=== PATIENT | male | born 1980 | race African-American/Black ===

== ENCOUNTER 2025-05-17 23:03 | Emergency (ER) | payer BC, MEDICAID, OTHER ==
[~2025-05-17] VITALS: Ht 193 cm; Wt 80.6 kg
--- NOTE | 2025-05-17 23:53 | ED.PDOC ---
Back pain HPI HPI Comments PT PRESENTED TO ED FOR BACK SPASMS X2-3 DAYS. PT STATED HE EXPERIENCED PREVIOUS EPISODES BUT NOT INTENSE TODAY. PT DENIED ANY URINARY S/S. Time Seen by MD: 23:05 Reviewed Notes: Nurses Notes, Medications, Allergies Allergies: Coded Allergies: No Known Drug Allergy (Verified Allergy, Unknown, 05/18/25) Home Meds Active Scripts Ibuprofen (Ibuprofen) 800 Mg Tab, 800 MG PO Q8HP PRN for 6 Days, #18 TAB Prov:ISSAC MULLEN [employer] 05/18/25 Tizanidine Hydrochloride (Tizanidine Hcl) 4 Mg Tab, 4 MG PO BID PRN for 6 Days, #12 TAB Prov:PAZISSAC [employer] 05/18/25 Information Source: Patient Constitutional: denies: chills, diaphoresis, fatigue, fever, malaise, sweats, weakness, others EENTM: denies: blurred vision, double vision, ear bleeding, ear discharge, ear drainage, ear pain, ear ringing, eye pain, eye redness, hearing loss, mouth pain, mouth swelling, nasal discharge, nose bleeding, nose congestion, nose pain, photophobia, tearing, throat pain, throat swelling, voice changes, others Respiratory: denies: cough, hemoptysis, orthopnea, SOB at rest, shortness of breath, SOB with excertion, stridor, wheezing, others Cardiovascular: denies: chest pain, dizzy spells, diaphoresis, Dyspnea on exertion, edema, irregular heart beat, left arm pain, lightheadedness, palpitations, PND, syncope, others Genitourinary: reports: flank pain; denies: burning, dysuria, frequency, hematuria, incontinence, penile discharge, penile sore, pain, testicle pain, testicle swelling, urgency, others Neurological: denies: dizziness, fainting, headache, left sided numbness, left sided weakness, numbness, paresthesia, pre-existing deficit, right sided numbness, right sided weakness, seizure, speech problems, tingling, tremors, weakness, others Musculoskeletal: reports: back pain; denies: gout, joint pain, joint swelling, muscle pain, muscle stiffness, neck pain, others Integumetry: denies: bruises, change in color, change in hair/nails, dryness, laceration, lesions, lumps, rash, wounds, others Allergic/Immunocompromised: denies: Difficulty Healing, Frequent Infections, Hives, Itching, others Hematologic/Lymphatic: denies: anemia, blood clots, easy bleeding, easy bruising, swollen glands, others Endocrine: denies: excessive hunger, excessive sweating, excessive thirst, excessive urination, flushing, intolerance to cold, intolerance to heat, unexplained weight gain, unexplained weight loss, others Psychiatric: denies: anxiety, bipolar disorder, depression, hopeless, panic disorder, schizophrenia, sleepless, suicidal, others Physical Exam General Appearance: No Apparent Distress, Normal HEENT: Pharynx Normal Neck: Full Range of Motion, Non-Tender, Normal, Normal Inspection Respiratory: Chest Non-Tender, Lungs Clear, No Respiratory Distress, Normal Breath Sounds Cardiovascular: No Edema, No JVD, No Murmur, No Gallop, Normal Peripheral Pulses, Regular Rate/Rhythm Breast Exam: Deferred Gastrointestinal: No Organomegaly, Non Tender, No Pulsatile Mass, Normal Bowel Sounds, Soft Genitalia: Deferred Pelvic: Deferred Rectal: Deferred Extremities: Normal inspection, Normal range of motion, Non-tender Musculoskeletal : Location: Left Extremity Location: Back (Moderate tenderness palpated over thoracic back musculature) Apperance: Normal Neurologic: Alert, No Motor Deficits, Normal Affect, Normal Mood, No Sensory Deficits Cerebellar Function: Normal Reflexes: Normal Skin: Dry, Normal Color, Warm Lymphatic: No Adenopathy Was a procedure done? Was a procedure done?: No Back Pain Differential Dx Differential Diagnosis: Fracture, Musculoskeletal Pain X-Ray, Labs, Meds, VS Vital Signs Date Time Temp Pulse Resp B/P (MAP) Pulse Ox O2 Delivery O2 Flow Rate FiO2 05/18/25 00:26 67 18 95 Room Air 05/18/25 00:26 97.8 67 18 149/113 (125) 95 97.8 05/17/25 23:55 97.7 70 18 150/103 (119) 98 97.7 Lab Test 05/18/25 02:57 05/18/25 02:22 Range/Units White Blood Count 10.7 4.4-10.8 10^3/uL Red Blood Count 5.63 4.5-5.90 10^6/uL Hemoglobin 16.8 13.5-17.5 g/dL Hematocrit 50.0 41.0-53.0 % Mean Corpuscular Volume 88.8 80.0-100.0 fL Mean Corpuscular Hemoglobin 29.9 28.0-32.0 pg Mean Corpuscular Hemoglobin Concent 33.6 32.0-36.0 g/dL Red Cell Distribution Width 14.4 H 11.8-14.3 % Platelet Count 344 140-450 10^3/uL Mean Platelet Volume 7.6 6.9-10.8 fL Neutrophils (%) (Auto) 89.7 H 37.0-80.0 % Lymphocytes (%) (Auto) 8.1 L 10.0-50.0 % Monocytes (%) (Auto) 1.1 0.0-12.0 % Eosinophils (%) (Auto) 0.4 0.0-7.0 % Basophils (%) (Auto) 0.7 0.0-2.0 % Neutrophils # (Auto) 9.6 H 1.6-8.6 10 ^3/uL Lymphocytes # (Auto) 0.9 0.4-5.4 10 ^3/uL Monocytes # (Auto) 0.1 0-1.3 10 ^3/uL Eosinophils # (Auto) 0 0-0.8 10 ^3/uL Basophils # (Auto) 0.1 0-0.2 10 ^3/uL Nucleated Red Blood Cells 0.0 % Sodium Level 137 136-145 mmol/L Potassium Level 4.3 3.5-5.1 mmol/L Chloride Level 106 98-107 mmol/L Carbon Dioxide Level 26 20-31 mmol/L Anion Gap 5 5-15 Blood Urea Nitrogen 13 9-23 mg/dL Creatinine 1.18 0.700-1.30 mg/dL Glomerular Filtration Rate Calc 78 >90 mL/min BUN/Creatinine Ratio 11.0 10.0-20.0 Serum Glucose 131 H 74-106 mg/dL Calcium Level 10.3 8.7-10.4 mg/dL Total Bilirubin 0.8 0.2-1.0 mg/dL Aspartate Amino Transferase (AST) 39 13-40 U/L Alanine Aminotransferase (ALT) 23 7-40 U/L Alkaline Phosphatase 95 46-116 U/L Total Protein 7.7 5.7-8.2 g/dL Albumin 4.9 H 3.2-4.8 g/dL Urine Color Light-yellow Yellow Urine Clarity Clear Clear Urine pH 6.5 5.0-9.0 Urine Specific [place] 1.021 1.001-1.035 Urine Protein Negative Negative Urine Ketones Negative Negative Urine Blood 2+ H Negative /uL Urine Nitrite Negative Negative Urine Bilirubin Negative Negative Urine Urobilinogen Normal Negative mg/dL Urine Leukocyte Esterase Negative Negative /uL Urine RBC 24 0 - 3 /hpf Urine Microscopic WBC < 1 0-3 /HPF Urine Squamous Epithelial Cells None seen <5 /hpf Urine Bacteria None seen None Seen /hpf Urine Mucus Few None Seen Urine Glucose Normal Normal mg/dL Current Medications Medications (Trade) Dose Ordered Sig/Chandni Route Start Time Stop Time Status Last Admin Ketorolac Tromethamine (Toradol Injection) 60 mg ONCE ONCE IM 05/18/25 00:00 05/18/25 00:01 DC 05/18/25 00:25 Dexamethasone Sodium Phosphate (Decadron Injection) 10 mg ONCE ONCE IM 05/18/25 00:00 05/18/25 00:01 DC 05/18/25 00:25 Oxycodone/ Acetaminophen (Percocet 5/ 325MG Tablet) 2 tab ONCE ONCE PO 05/18/25 02:30 05/18/25 02:31 DC 05/18/25 02:37 X-Ray, Labs, Meds, VS Comment CT abdominal/pelvic shows no acute findings shows moderate stool and noted gynecomastia, ultrasound for further evaluation is recommended. CBC, CMP within normal limits. UA shows positive RBCs. Patient given Toradol 60 mg IM and Decadron 10 mg IM. Patient also given Percocet 10 mg p.o. reports improvement in pain requesting discharge at this time. Script trial of muscle relaxer and ibuprofen advised take medications as prescribed side effects discussed. Advised to follow up with PCP for outpatient ultrasound for gynecomastia and also repeat urine due to positive RBCs. Advised to rest increase p.o. fluids with electrolytes advised on ER return precautions patient indicates understanding and agrees with discharge plan of care. Time of 1ST Reevaluation: 23:53 Reevaluation 1ST: Unchanged Time of 2ND Reevaluation: 02:00 Reevaluation 2ND: Improved Patient Education/Counseling: Diagnosis, Treatment, Prognosis, Need For Follow Up Family Education/Counseling: No Family Present SEPSIS Sepsis Screen Physician Orders Spine Thoracic 2view (05/17/25 23:54) Ct Ab Pel Wo Con-No Oral Or Iv (05/18/25 02:39) Vital Signs Date Time Temp Pulse Resp B/P (MAP) Pulse Ox O2 Delivery O2 Flow Rate FiO2 05/18/25 00:26 67 18 95 Room Air 05/18/25 00:26 97.8 67 18 149/113 (125) 95 97.8 05/17/25 23:55 97.7 70 18 150/103 (119) 98 97.7 Laboratory Tests Test 05/18/25 02:57 White Blood Count 10.7 10^3/uL (4.4-10.8) Medications Medications Dose Ordered Sig/Chandni Route Start Time Stop Time Status Last Admin Dose Admin Dexamethasone Sodium Phosphate 10 mg ONCE ONCE IM 05/18/25 00:00 05/18/25 00:01 DC 05/18/25 00:25 Ketorolac Tromethamine 60 mg ONCE ONCE IM 05/18/25 00:00 05/18/25 00:01 DC 05/18/25 00:25 Oxycodone/ Acetaminophen 2 tab ONCE ONCE PO 05/18/25 02:30 05/18/25 02:31 DC 05/18/25 02:37 Departure 1 Departure Time of Disposition: 02:00 Impression: Primary Impression: Strain of muscle and tendon of back wall of thorax, initial encounter Additional Impression: Gynecomastia, male Disposition: 01 HOME / SELF CARE / HOMELESS Condition: Stable e-Prescriptions Ibuprofen (Ibuprofen) 800 Mg Tab 800 MG PO Q8HP PRN for 6 Days, #18 TAB Prov: ISSAC MULLEN 05/18/25 Tizanidine Hydrochloride (Tizanidine Hcl) 4 Mg Tab 4 MG PO BID PRN for 6 Days, #12 TAB Prov: ISSAC MULLEN 05/18/25 Discharged With: Self, Friend Critical Care Note Critical Care Time?: No Stability Stability form required: No ISSAC MULLEN May 17, 2025 23:53
[2025-05-18] MEDS: KETOROLAC TROMETH 60MG/2ML VIAL IM ONE (00:25)
--- NOTE | 2025-05-18 01:34 | DVH ---
INDICATION: mid back pain COMPARISON: None TECHNIQUE: 2 views of the thoracic spine were obtained. FINDINGS: There are 12 rib-bearing thoracic type vertebral bodies . Alignment is preserved. Vertebral body hei ghts are maintained. The pedicles are intact. Visualized lungs are clear. Overlying soft tissues in tact. IMPRESSION: No acute fracture or traumatic malalignment.
[2025-05-18 02:34] LABS: Urine Protein, UAD Negative (Negative)
[2025-05-18] MEDS: OXYCODONE W/ ACETAMINOPHEN 5/325MG TABLET PO ONE (02:37)
[2025-05-18 03:10] LABS: Hematocrit 50.0 % (41.0-53.0); Hemoglobin 16.8 g/dL (13.5-17.5); Mean Corpuscular Hemoglobin 29.9 pg (28.0-32.0); Mean Corpuscular Volume 88.8 fL (80.0-100.0); Nucleated Red Blood Cells % 0.0 %
[2025-05-18 03:32] LABS: Alanine Aminotransferase 23 U/L (7-40); Alkaline Phosphatase 95 U/L (46-116); Anion Gap 5 (5-15); BUN/Creatinine Ratio 11.0 (10.0-20.0); Bilirubin, Total 0.8 mg/dL (0.2-1.0); Blood Urea Nitrogen 13 mg/dL (9-23); Calcium 10.3 mg/dL (8.7-10.4); Carbon Dioxide 26 mmol/L (20-31); Chloride 106 mmol/L (98-107); Potassium 4.3 mmol/L (3.5-5.1); Sodium 137 mmol/L (136-145); Total Protein 7.7 g/dL (5.7-8.2)
[2025-05-18 03:33] LABS: Albumin 4.9 g/dL (3.2-4.8); Glucose 131 mg/dL (74-106)
--- NOTE | 2025-05-18 04:08 | DVH ---
Examination: ABPL CLINICAL INDICATION: left flank pain COMPARISON: None. CONTRAST USED: None TECHNIQUE: A plain CT study of the abdomen and pelvis is performed. The examination was performed w ith [address] scan is done according to ALARA (As Low as Reasonably Achievable). Multipl boo reconstructions were obtained. FINDINGS: The lack of intravenous contrast limits evaluation of solid organ and other structures, differentiati on / separation and intraluminal evaluation of vessels and ureter from surrounding structures, and ev aluation of organ or abnormal enhancement. CT ABDOMEN: Visualized lower thorax: The evaluation of lung bases demonstrates no focal infiltrates or pleural effusion. Retroareolar soft tissue densities noted in the subcutaneous plane of anterior chest wall bilaterally , suggestive of gynecomastia. Advised further evaluation with ultrasound study. Unenhanced liver: The liver is normal in size. There is no intrahepatic biliary radicle dilatation. Gallbladder: The gallbladder is normal and reveals no intrinsic abnormality. The common bile duct is not dilated. Unenhanced pancreas: The pancreas is normal in size and shape. No focal lesion is seen within. The peripancreatic fat planes are normal. Unenhanced spleen: The spleen is normal in size and does not show any focal abnormality. Retroperitoneum: Both adrenal glands are normal in size and morphology in this unenhanced CT scan. There is no significant retroperitoneal lymphadenopathy. The kidneys are normal in size with no hydronephrosis or renal calculi. Vessels: The aorta, IVC and the mesenteric vessels cannot be commented in this unenhanced CT scan. Stomach and bowel: The bowel loops are unremarkable. There is no ascites. Skeletal system: The visualized thoracolumbar vertebrae and the pelvic bones are unremarkable. CT PELVIS: Appendix: The appendix is unremarkable in appearance (diameter up to approximately 4 mm). Colon: Fecal matter noted in the ascending and transverse colon, suggestive of constipation in the appropria te clinical setting. Advised clinical correlation. The descending, sigmoid colon and rectum are unremarkable. Urinary bladder: The urinary bladder is partially distended. Pelvic organs: The prostate is normal in size and unremarkable in appearance. No significant pelvic lymphadenopathy is identified. No abnormal fluid collection is seen. Calcified phlebolith noted in pelvis on the right side. IMPRESSION: 1. No abdominal mass or adenopathy. 2. No ascites. 3. No free air or inflammatory changes. 4. Chronic and / or ancillary findings as described above. Electronically Signed 05/18/2025 04:06 Ashok Reeder
[2025-05-18] MEDS ORDERED: TIZA-142 PO (04:33)
[2025-05-18] MEDS ORDERED: IBUP-1456 PO (04:33)
[2025-05-18 05:27] VITALS: BP 157/110; PULSE 68; RESP 14; TEMP 97.8; O2SAT 97
== END 2025-05-18 05:38 | disposition home or self-care (01) ==
LOC: ER 23:03
DX: S29.012A Strain of muscle and tendon of back wall of thorax, initial encounter (principal); N62 Hypertrophy of breast; Z79.899 Other long term (current) drug therapy; X58.XXXA Exposure to other specified factors, initial encounter; Y93.89 Activity, other specified; Y92.89 Other specified places as the place of occurrence of the external cause; Y99.8 Other external cause status
CPT/HCPCS: 36415; 72070; 74176; 80053; 81001; 85025; 96372; 99285; J1100; J1885